=== PATIENT | male | born 1990 | race Caucasian/White ===

== ENCOUNTER 2018-08-20 15:51 | Emergency (ER) | payer BC ==
[~2018-08-20] VITALS: Ht 193 cm; Wt 124.5 kg
[~2018-08-20 15:51] MED LIST: IBUPROFEN200 M1 PO; SULFAMETHOXAZO1 EAC1 PO
[2018-08-20] MEDS ORDERED: TOBRADEX EYE DRO5 ML OPTH (16:25)
== END 2018-08-20 16:45 | disposition home or self-care (01) ==
LOC: ED 15:51
DX: H10.9 Unspecified conjunctivitis (principal); Z87.891 Personal history of nicotine dependence; Z79.899 Other long term (current) drug therapy
CPT/HCPCS: 99282